=== PATIENT | male | born 1970 | race American Indian/Alaskan Native ===

== ENCOUNTER 2017-09-15 07:01 | Inpatient (IN) | payer MEDICARE ==
[2017-09-15] MEDS ORDERED: PERCOCET 5/325 PO ONE (08:56)
[2017-09-15 09:25] LABS: Basophils # (Auto) 0.1 K/mm3 (0.0-0.1); Basophils % (Auto) 1.5 % (0.0-1.8); Eosinophils # (Auto) 0.9 K/mm3 (0.0-0.4); Eosinophils % (Auto) 10.1 % (0.0-4.3); Hemoglobin 6.1 gm/dl (11.8-15.2); Lymphocytes # (Auto) 1.2 K/mm3 (1.2-5.4); Lymphocytes % (Auto) 13.9 % (13.4-35.0); Mean Corpuscular HGB Conc 33 % (32-34); Mean Corpuscular Hemoglobin 27 pg (28-32); Mean Corpuscular Volume 82 fl (84-94); Monocytes # (Auto) 0.7 K/mm3 (0.0-0.8); Monocytes % (Auto) 7.5 % (0.0-7.3); Platelet Count 245 K/mm3 (140-440); Red Blood Count 2.25 M/mm3 (3.65-5.03); Red Cell Distribution Width 18.4 % (13.2-15.2)
[2017-09-15 09:27] LABS: Hematocrit 18.4 % (35.5-45.6)
[2017-09-15 09:36] LABS: INR 0.99 (0.87-1.13)
[2017-09-15 09:37] LABS: Partial Thromboplastin Time 34.9 Sec. (24.2-36.6)
[2017-09-15 09:44] LABS: Albumin 3.5 g/dL (3.9-5); Calcium 7.4 mg/dL (8.4-10.2)
[2017-09-15] MEDS ORDERED: NACL 0.9% 500 ML 500 ML IV ONE ×2 (09:58→14:09)
--- NOTE | 2017-09-15 11:04 | Emergency Department Report ---
ED General Adult HPI - General Chief complaint: Recheck/Abnormal Lab/Rx Stated complaint: LOW HEMOGLOBIN COUNT Time Seen by Provider: 09/15/17 08:14 Source: EMS Mode of arrival: Stretcher Limitations: No Limitations - History of Present Illness Initial comments: Patient showed up for dialysis today, but they wouldn't do it because his blood level was too low. Patient states that they've been doing dialysis incorrectly for the past couple weeks. He does not receive heparin during his dialysis sessions, which has caused him to lose a lot of blood during dialysis. Patient says he felt really fatigued and weak lately. Not on blood thinners. Denies seeing any red or black in his stool. Last dialysis was on 09/10/2017. Severity scale (0 -10): 8 - Related Data Allergies Allergy/AdvReac Type Severity Reaction Status Date / Time No Known Allergies Allergy Verified 09/15/17 08:21 ED Review of Systems ROS: Stated complaint: LOW HEMOGLOBIN COUNT Other details as noted in HPI Constitutional: malaise, weakness. denies: chills, fever Eyes: denies: eye pain, eye discharge, vision change ENT: denies: ear pain, throat pain Respiratory: denies: cough, shortness of breath, wheezing Cardiovascular: denies: chest pain, palpitations Endocrine: no symptoms reported Gastrointestinal: denies: abdominal pain, nausea, diarrhea Genitourinary: denies: urgency, dysuria Musculoskeletal: denies: back pain, joint swelling, arthralgia Skin: denies: rash, lesions Neurological: denies: headache, weakness, paresthesias Psychiatric: denies: anxiety, depression Hematological/Lymphatic: denies: easy bleeding, easy bruising ED Past Medical Hx - Past Medical History Previous Medical History?: Yes Hx Hypertension: Yes Hx HIV: Yes Additional medical history: ESRD - Social History Smoking Status: Never Smoker Substance Use Type: Alcohol ED Physical Exam - General Limitations: No Limitations General appearance: alert, in no apparent distress - Head Head exam: Present: atraumatic, normocephalic - Eye Eye exam: Present: normal appearance - ENT ENT exam: Present: mucous membranes moist - Neck Neck exam: Present: normal inspection - Respiratory Respiratory exam: Present: normal lung sounds bilaterally. Absent: respiratory distress - Cardiovascular Cardiovascular Exam: Present: regular rate, normal rhythm. Absent: systolic murmur, diastolic murmur, rubs, gallop - GI/Abdominal GI/Abdominal exam: Present: soft. Absent: tenderness, normal bowel sounds - Rectal Rectal exam: Present: deferred, heme (-) stool - Extremities Exam Extremities exam: Present: normal inspection - Back Exam Back exam: Present: normal inspection - Neurological Exam Neurological exam: Present: alert, oriented X3 - Psychiatric Psychiatric exam: Present: normal affect, normal mood - Skin Skin exam: Present: warm, dry, intact, normal color. Absent: rash ED Course Vital Signs 09/15/17 09/15/17 09/15/17 07:55 08:04 08:15 Temperature 98.1 F Pulse Rate 67 68 70 Respiratory 14 17 16 Rate Blood Pressure 167/86 170/85 Blood Pressure 167/86 [Right] O2 Sat by Pulse 100 100 Oximetry 09/15/17 09/15/17 08:26 09:49 Temperature Pulse Rate Respiratory 14 14 Rate Blood Pressure Blood Pressure [Right] O2 Sat by Pulse 100 Oximetry ED Medical Decision Making - Lab Data Result diagrams: 09/15/17 09:03 09/15/17 09:03 - Medical Decision Making 6-year-old male with past history of hypertension, ESRD with dialysis Thursday/ /Thursday that presents to the ER with anemia. Vitals stable. Patient will hand. Hemoglobin is 6.1 day. It appears that his baseline is 8. Patient says that he is losing blood at dialysis. Guaiac was negative. Patient will be transfused a unit of blood. Of note, BMP shows signs that the patient needs dialysis. Creatinine 17. Potassium 6.1. He will be given albuterol/insulin for treatment of his hyperkalemia. I have called nephrology to set him up for dialysis today. An EKG has been ordered to exclude cardiac abnormalities due to hyperkalemia. Critical Care Time: Yes Critical care time in (mins) excluding proc time.: 32 Critical care attestation.: If time is entered above; I have spent that time in minutes in the direct care of this critically ill patient, excluding procedure time. ED Disposition Clinical Impression: Hyperkalemia, Anemia Disposition: OP ADMIT IP TO THIS HOSP Is pt being admited?: Yes Does the pt Need Aspirin: No Condition: Stable Referrals: PRIMARY CARE, [Primary Care Provider] - 3-5 Days
[2017-09-15] MEDS ORDERED: ALBURX 25% (ALBUMIN) IV PRN (12:21)
[2017-09-15] MEDS ORDERED: NACL 0.9% 100 ML IV PRN (12:21)
--- NOTE | 2017-09-15 12:35 | Consultation ---
History of Present Illness - Reason for Consult Consult date: 09/15/17 end stage renal disease, hyperkalemia Requesting physician: GAIL [place] - History of Present Illness Patient showed up for dialysis today, but they wouldn't do it because his blood level was too low. Patient states that they've been doing dialysis incorrectly for the past couple weeks. He does not receive heparin during his dialysis sessions. So, he has been losing a lot of blood during dialysis. Patient says he felt really fatigued and weak lately. Not on blood thinners. Denies seeing any red or black in his stool. Last dialysis was on 09/10/2017. ROS: Stated complaint: LOW HEMOGLOBIN COUNT Other details as noted in HPI Constitutional: malaise, weakness. denies: chills, fever Eyes: denies: eye pain, eye discharge, vision change ENT: denies: ear pain, throat pain Respiratory: denies: cough, shortness of breath, wheezing Cardiovascular: denies: chest pain, palpitations Endocrine: no symptoms reported Gastrointestinal: denies: abdominal pain, nausea, diarrhea Genitourinary: denies: urgency, dysuria Musculoskeletal: denies: back pain, joint swelling, arthralgia Skin: denies: rash, lesions Neurological: denies: headache, weakness, paresthesias Psychiatric: denies: anxiety, depression Hematological/Lymphatic: denies: easy bleeding, easy bruising - Past Medical History Previous Medical History?: Yes Hx Hypertension: Yes Hx HIV: Yes Additional medical history: ESRD -Surgical History dialysis access placement - Social History Smoking Status: Never Smoker Substance Use Type: Alcohol Medications and Allergies Allergies Allergy/AdvReac Type Severity Reaction Status Date / Time No Known Allergies Allergy Verified 09/15/17 08:21 Active Meds: Active Medications Albumin Human (Alburx 25% (Albumin)) 25 gm IV GARCIA PRN PRN Reason: Hypotension Epoetin Erwin (Epogen) 20,000 unit IV GARCIA PRN PRN Reason: hemodialysis Sodium Chloride (Nacl 0.9%) 100 mls @ 999 mls/hr IV GARCIA PRN PRN Reason: Hypotension Exam - Vital Signs Vital signs: Vital Signs Temp Pulse Resp BP Pulse Ox 98.1 F 67 14 167/86 100 09/15/17 07:55 09/15/17 07:55 09/15/17 07:55 09/15/17 07:55 09/15/17 07:55 - Physical Exam Narrative exam: - General Limitations: No Limitations General appearance: alert, in no apparent distress - Head Head exam: Present: atraumatic, normocephalic - Eye Eye exam: Present: normal appearance - ENT ENT exam: Present: mucous membranes moist - Neck Neck exam: Present: normal inspection - Respiratory Respiratory exam: Present: normal lung sounds bilaterally. Absent: respiratory distress - Cardiovascular Cardiovascular Exam: Present: regular rate, normal rhythm. Absent: systolic murmur, diastolic murmur, rubs, gallop - GI/Abdominal GI/Abdominal exam: Present: soft. Absent: tenderness, normal bowel sounds - Rectal Rectal exam: Present: deferred, heme (-) stool - Extremities Exam Extremities exam: Present: normal inspection - Back Exam Back exam: Present: normal inspection - Neurological Exam Neurological exam: Present: alert, oriented X3 - Psychiatric Psychiatric exam: Present: normal affect, normal mood - Skin Skin exam: Present: warm, dry, intact, normal color. Absent: rash Results - Lab Results 09/15/17 09:03 09/15/17 09:03 Most recent lab results Calcium 7.4 mg/dL (8.4-10.2) L 09/15/17 09:03 Assessment and Plan Impression: * ESRD * Hyperkalemia * HTN * Anemia in ESRD Plan: * HD stat and prn * uf as tolerated * strict i/os * Renal Diet * daily lytes/cbc
[2017-09-15] MEDS ORDERED: NACL 0.9 (PRIMING MACHINE ONLY DIALYSIS) MC ONE (15:41)
[2017-09-15] MEDS ORDERED: MORPHINE IV ONE (16:16)
[2017-09-15] MEDS ORDERED: DILAUDID ONE (19:52)
[2017-09-15] MEDS: DILAUDID IV PRN (19:57)
[2017-09-15] MEDS ORDERED: PROAIR IH PRN (21:01)
[2017-09-15] MEDS ORDERED: AMBIEN PO PRN (21:02)
[2017-09-15] MEDS ORDERED: SODIUM CHLORIDE FLUSH SYRINGE 10 ML IV PRN (21:02)
[2017-09-15] MEDS ORDERED: MOTRIN PO PRN (21:02)
[2017-09-15] MEDS ORDERED: ZOFRAN IV PRN (21:02)
[2017-09-15] MEDS ORDERED: TYLENOL PO PRN (21:02)
[2017-09-15] MEDS ORDERED: APRESOLINE IV PRN (21:05)
[2017-09-15] MEDS ORDERED: PROVENTIL IH PRN (21:14)
[2017-09-15] MEDS ORDERED: NON-FORMULARY (Clonidine Hcl [Catapres] 0.3 MG) PO SCH (22:00)
[2017-09-15] MEDS: PEPCID PO SCH (23:00)
[2017-09-15] MEDS: LONITEN PO SCH (23:00)
[2017-09-15] MEDS: SODIUM CHLORIDE FLUSH SYRINGE 10 ML IV SCH (23:00)
[2017-09-15] MEDS: COREG PO SCH (23:00)
[2017-09-15] MEDS: CATAPRES PO SCH (23:00)
[2017-09-15] MEDS: PERCOCET 5/325 PO PRN (23:38)
--- NOTE | 2017-09-16 01:56 | Event Note ---
Date: 09/15/17 See dictated H/P in reports
--- NOTE | 2017-09-16 02:12 | History and Physical Report ---
CHIEF COMPLAINT: Low hemoglobin and hematocrit. HISTORY OF PRESENT ILLNESS: The patient is a 46-year-old -[place] male with end-stage renal disease, showed up for dialysis and was told that his hemoglobin was low, was sent to the Emergency Room for blood transfusion and continued dialysis. The patient says his dialysis was not being done currently. There is shortness of breath on minimal exertion present. Easily fatigable. Otherwise, no chest pain, no palpitations. No fever, no chills. PAST MEDICAL HISTORY: Significant for hypertension, HIV, end-stage renal disease. SOCIAL HISTORY: He does not smoke. Alcohol occasionally. PAST SURGICAL HISTORY: AV graft. FAMILY HISTORY: Hypertension. REVIEW OF SYSTEMS: Significant for feeling weak and easy fatigability and shortness of breath. Otherwise, 14-point review of systems negative. CURRENT MEDICATIONS: On the chart. PHYSICAL EXAMINATION: GENERAL: Middle-aged male, cooperative during examination. VITAL SIGNS: Blood pressure is 192/99, temperature is 98.4, pulse is 91, respirations are 16. HEENT: Unremarkable. Pupils equal and reactive. NECK: Supple, no lymphadenopathy, no thyromegaly. LUNGS: Clear to auscultation and percussion. Good air entry. CARDIOVASCULAR: S1, S2 heard. No gallop, no murmur, no rub. Apical impulse in the left fifth intercostal space and midclavicular line. ABDOMEN: Soft and benign. No hepatosplenomegaly. No guarding, no rigidity. Hernial orifices are normal. EXTREMITIES: Good pedal pulses. No pedal edema. CENTRAL NERVOUS SYSTEM: Alert and oriented x 4, nonfocal exam. SKIN: Normal. LABORATORY DATA: Significant for H and H of 6.1 and 18.4, potassium of 6.2, BUN and creatinine of 69 and 17.2. ASSESSMENT AND PLAN: 1. Acute anemia secondary to end-stage renal disease and transfuse 2 units of blood. 2. Hyperkalemia. The patient given calcium. Also taken for emergent dialysis. 3. Hypertension. Continue Coreg and minoxidil. 4. Hyperlipidemia. Continue atorvastatin. 5. Asthma/chronic obstructive pulmonary disease. Continue insulin. 6. Deep venous thrombosis prophylaxis, heparin 5000 every 12. 7. End-stage renal disease. Continue dialysis. JOB# [id number] VSM/NTS
[2017-09-16] MEDS: DILAUDID IV PRN ×4 (02:54→20:32)
[2017-09-16 08:25] LABS: Basophils # (Auto) 0.1 K/mm3 (0.0-0.1); Basophils % (Auto) 0.8 % (0.0-1.8); Eosinophils # (Auto) 0.6 K/mm3 (0.0-0.4); Eosinophils % (Auto) 4.3 % (0.0-4.3); Hematocrit 28.6 % (35.5-45.6); Lymphocytes # (Auto) 1.5 K/mm3 (1.2-5.4); Lymphocytes % (Auto) 10.9 % (13.4-35.0); Mean Corpuscular HGB Conc 35 % (32-34); Mean Corpuscular Hemoglobin 29 pg (28-32); Mean Corpuscular Volume 82 fl (84-94); Monocytes # (Auto) 1.3 K/mm3 (0.0-0.8); Monocytes % (Auto) 9.3 % (0.0-7.3); Red Blood Count 3.48 M/mm3 (3.65-5.03); Red Cell Distribution Width 18.7 % (13.2-15.2)
[2017-09-16 08:28] LABS: Platelet Count 245 K/mm3 (140-440)
[2017-09-16 08:35] LABS: Albumin 3.6 g/dL (3.9-5); Calcium 8.5 mg/dL (8.4-10.2)
--- NOTE | 2017-09-16 10:26 | Progress Note ---
Subjective Interval history: Patient was seen today for follow-up, on many renal related issues Patient currently denies having any symptoms of chest pain pressure shortness of breath did receive hemodialysis treatment he is not happy about the clinic where he is being dialyzed, patient stated that he was not getting heparin and has had issues with dialyzer clotting resulting in blood loss in the early days when he moved to [facility] prior to which she was dialyzing [facility] He does have a chronically tortuous access for which she was seeing his vascular surgeon Dr. Richards and he would like to follow up with him Interdisciplinary notes were reviewed Vitals labs intake and output medications were reviewed from today Allergies: Reviewed Social history: Reviewed Family history: Reviewed Physical examination HEENT: Oral mucosa moist no pharyngeal erythema, moderate pallor present Neck: Supple no JVD Chest: Clear to auscultation no crackles rales or wheezes Heart: Regular rate and rhythm S1-S2 heard no S3-S4 Abdomen: Soft nontender no renal bruit no CVA tenderness no suprapubic fullness Extremity: Mild edema dry skin no peripheral cyanosis pulses palpable Chronically tortuous fistula Neurological: Alert awake Musculoskeletal: No joint effusion noted Assessment and plan End-stage renal disease: Patient is currently on maintenance hemodialysis, will continue to dialyze as tolerated, he has received his hemodialysis treatment Anemia and end-stage renal disease: Goal hemoglobin 10 monitor hemoglobin and hematocrit and just erythropoietin as needed, check other labs periodically patient will require further workup of anemia possibly will need to see gastroenterology as well as hematology,this can be arranged an outpatient setting as well, have had a long discussion with patient, he believes that the blood was lost due to dialyzer clotting we will need to monitor and if it still continues to have down trend he will need to see these services I have discussed with the dialysis facility already patient is currently on heparin at the facility, I have told him that if he has any issues he can reach out to us have given him my business card to contact me hyperkalemia: Appears to have improved Bone mineral and Secondary hyperparathyroidism: Check phosphorus and PTH level goal phosphorus under 5, PTH under 600, for dialysis patients Malnutrition risk: High patient needs to be on high protein diet preferably 1.5 g protein per KG body weight and may benefit from nutritional evaluation Dialysis access: , Appears to be working well patient does not have any complaints Labs were discussed with patient explained and simple Slovak does have good understanding off renal related issues, Will continue to follow and make recommendation from renal standpoint Objective - Vital Signs Vital signs: Vital Signs - 12hr 09/15/17 09/16/17 09/16/17 23:00 01:30 04:17 Temperature 98.5 F Pulse Rate 92 H 82 92 H Respiratory 16 18 Rate Blood Pressure 192/99 140/92 Blood Pressure 129/77 [Left] O2 Sat by Pulse 97 100 Oximetry 09/16/17 07:53 Temperature 98.0 F Pulse Rate 86 Respiratory 18 Rate Blood Pressure 177/76 Blood Pressure [Left] O2 Sat by Pulse 100 Oximetry - Lab 09/17/17 10:19 09/17/17 10:19 Most recent lab results Calcium 8.5 mg/dL (8.4-10.2) 09/16/17 07:37
[2017-09-16] MEDS: PEPCID PO SCH ×2 (11:14→23:13)
[2017-09-16] MEDS: LONITEN PO SCH ×2 (11:14→23:13)
[2017-09-16] MEDS: COREG PO SCH ×2 (11:14→23:17)
[2017-09-16] MEDS: CATAPRES PO SCH ×2 (11:15→23:16)
--- NOTE | 2017-09-16 19:34 | Progress Note ---
Assessment and Plan Assessment and plan: Patient is a 46 year old male with hx of ESRD on HD admitted with anemia and no noted GI losses Anemia of chronic disease . Eval for acute losses- ?Per pt likely due to discarded blood clotting in dialysis system ESRD HTN HYPERLIPIDEMIA COPD Plan s/p transfusion, monitor H/H. Check iron Indices Nebs Nephrology input noted Electrolytes as replace History Interval history: Pateint seen and examined today, reports improvement in generalized weakness, denies any melanotic stool or BRBPR. Hospitalist Physical - Constitutional Vitals: Temp Pulse Resp BP Pulse Ox 98.4 F 93 H 18 133/79 98 09/16/17 16:26 09/16/17 16:26 09/16/17 16:26 09/16/17 16:26 09/16/17 16:26 General appearance: Present: no acute distress, cachectic - EENT Eyes: Present: PERRL, EOM intact - Neck Neck: Present: supple, normal ROM - Respiratory Respiratory effort: normal Respiratory: bilateral: CTA - Cardiovascular Rhythm: regular Heart Sounds: Present: S1 & S2. Absent: systolic murmur, diastolic murmur - Extremities Extremities: no ischemia, pulses intact, pulses symmetrical, normal temperature , abnormal (left upper ext AV FISTULA with thrills) Peripheral Pulses: within normal limits - Abdominal General gastrointestinal: soft, non-tender, non-distended - Integumentary Integumentary: Present: clear, warm - Psychiatric Psychiatric: appropriate mood/affect, intact judgment & insight - Neurologic Neurologic: CNII-XII intact - Allied Health Allied health notes reviewed: nursing Results - Labs CBC & Chem 7: 09/16/17 07:37 09/16/17 07:37 Labs: Laboratory Last Values WBC 13.5 K/mm3 (4.5-11.0) H 09/16/17 07:37 RBC 3.48 M/mm3 (3.65-5.03) L 09/16/17 07:37 Hgb 10.0 gm/dl (11.8-15.2) L D 09/16/17 07:37 Hct 28.6 % (35.5-45.6) L D 09/16/17 07:37 MCV 82 fl (84-94) L 09/16/17 07:37 MCH 29 pg (28-32) 09/16/17 07:37 MCHC 35 % (32-34) H 09/16/17 07:37 RDW 18.7 % (13.2-15.2) H 09/16/17 07:37 Plt Count 245 K/mm3 (140-440) 09/16/17 07:37 Lymph % (Auto) 10.9 % (13.4-35.0) L 09/16/17 07:37 [place] % (Auto) 9.3 % (0.0-7.3) H 09/16/17 07:37 Eos % (Auto) 4.3 % (0.0-4.3) 09/16/17 07:37 Baso % (Auto) 0.8 % (0.0-1.8) 09/16/17 07:37 Lymph # 1.5 K/mm3 (1.2-5.4) 09/16/17 07:37 [place] # 1.3 K/mm3 (0.0-0.8) H 09/16/17 07:37 Eos # 0.6 K/mm3 (0.0-0.4) H 09/16/17 07:37 Baso # 0.1 K/mm3 (0.0-0.1) 09/16/17 07:37 Seg Neutrophils % 74.7 % (40.0-70.0) H 09/16/17 07:37 Seg Neutrophils # 10.1 K/mm3 (1.8-7.7) H 09/16/17 07:37 PT 13.6 Sec. (12.2-14.9) 09/15/17 09:03 INR 0.99 (0.87-1.13) 09/15/17 09:03 APTT 34.9 Sec. (24.2-36.6) 09/15/17 09:03 Sodium 136 mmol/L (137-145) L 09/16/17 07:37 Potassium 4.9 mmol/L (3.6-5.0) D 09/16/17 07:37 Chloride 93.6 mmol/L (98-107) L 09/16/17 07:37 Carbon Dioxide 26 mmol/L (22-30) 09/16/17 07:37 Anion Gap 21 mmol/L 09/16/17 07:37 BUN 37 mg/dL (9-20) H 09/16/17 07:37 Creatinine 10.4 mg/dL (0.8-1.5) H 09/16/17 07:37 Estimated GFR 6 ml/min 09/16/17 07:37 BUN/Creatinine Ratio 4 % 09/16/17 07:37 Glucose 91 mg/dL (75-100) 09/16/17 07:37 Hemoglobin A1c 5.8 % (4-6) 09/15/17 21:26 Calcium 8.5 mg/dL (8.4-10.2) 09/16/17 07:37 Total Bilirubin 1.30 mg/dL (0.1-1.2) H 09/16/17 07:37 AST 35 units/L (5-40) 09/16/17 07:37 ALT 10 units/L (7-56) 09/16/17 07:37 Alkaline Phosphatase 80 units/L (35-129) 09/16/17 07:37 Total Protein 8.4 g/dL (6.3-8.2) H 09/16/17 07:37 Albumin 3.6 g/dL (3.9-5) L 09/16/17 07:37 Albumin/Globulin Ratio 0.8 % 09/16/17 07:37 Blood Type B POSITIVE 09/15/17 09:03 Antibody Screen Negative 09/15/17 09:03 Crossmatch See Detail 09/15/17 09:03
[2017-09-16] MEDS: SODIUM CHLORIDE FLUSH SYRINGE 10 ML IV SCH ×2 (23:21→23:44)
[2017-09-17] MEDS: PERCOCET 5/325 PO PRN ×2 (02:06→16:58)
[2017-09-17 07:52] LABS: Hematocrit 26.6 % (35.5-45.6); Hemoglobin 9.2 gm/dl (11.8-15.2); Mean Corpuscular HGB Conc 35 % (32-34); Mean Corpuscular Hemoglobin 29 pg (28-32); Mean Corpuscular Volume 83 fl (84-94); Red Cell Distribution Width 18.3 % (13.2-15.2)
[2017-09-17 07:55] LABS: Platelet Count 199 K/mm3 (140-440)
[2017-09-17] MEDS: DILAUDID IV PRN ×2 (07:58→13:10)
--- NOTE | 2017-09-17 09:53 | Progress Note ---
Subjective Interval history: Patient was seen today for follow-up, on many renal related issues he has recently both to dialysis clinic of this outside of the town He does not have any history suggestive of GI loss Stated that he has had a GI workup done approximately a year ago including endoscopy and colonoscopy He does not remember seeing a security consultant recently, he has not seen a lvn recently Patient stated that he was losing blood because he was not getting heparin on dialysis and dialyzer was clotting in the early stages but has been getting heparin at the clinic in the past few weeks Interdisciplinary notes were reviewed Vitals labs intake and output medications were reviewed from today Allergies: Reviewed Social history: Reviewed Family history: Reviewed Physical examination HEENT: Oral mucosa moist no pharyngeal erythema, moderate pallor present Neck: Supple no JVD Chest: Clear to auscultation no crackles rales or wheezes Heart: Regular rate and rhythm S1-S2 heard no S3-S4 Abdomen: Soft nontender no renal bruit no CVA tenderness no suprapubic fullness Extremity: Mild edema dry skin no peripheral cyanosis pulses palpable 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 Neurological: Alert awake Musculoskeletal: No joint effusion noted Assessment and plan End-stage renal disease: continue with hemodialysis 3 times a week on Thursday schedule Anemia and end-stage renal disease: Advised him to follow-up at the dialysis clinic and also discussed with primary care physician, if hemoglobin continues to down trend he will need to go for repeat GI workup as well as a hematology evaluation have had a long discussion with him about these issues Status post packed red blood cell transfusion patient is feeling much better he denies having any blood loss Will need to check with outpatient dialysis clinic facility, about patient's labs, he does not seem to be happy at the facility hyperkalemia: Appears to have improved Bone mineral and Secondary hyperparathyroidism: Check phosphorus and PTH level goal phosphorus under 5, PTH under 600, for dialysis patients Malnutrition risk: High patient needs to be on high protein diet preferably 1.5 g protein per KG body weight and may benefit from nutritional evaluation Dialysis access: , Appears to be working well patient does not have any complaints, his access appeared to be tortuous but he prefers to follow up with Dr. Richards in [place] who is his regular vascular Dr. need to make a follow-up appointment in our office,overall he is stable for discharge from renal standpoint I have adequately counseled and educated him about renal replacement therapy, diet lifestyle changes need to comply with treatment recommendations and he agrees to do so Labs were discussed with patient explained and simple Icelandic does have good understanding off renal related issues, Will continue to follow and make recommendation from renal standpoint Objective - Vital Signs Vital signs: Vital Signs - 12hr 09/16/17 09/16/17 09/16/17 22:00 23:16 23:17 Temperature Pulse Rate 90 90 Respiratory 18 Rate Blood Pressure 130/78 130/78 O2 Sat by Pulse 98 Oximetry 09/17/17 09/17/17 00:00 07:38 Temperature 98.0 F 98.4 F Pulse Rate 84 80 Respiratory 18 20 Rate Blood Pressure 131/72 128/73 O2 Sat by Pulse 99 98 Oximetry - Lab 09/17/17 10:19 09/17/17 10:19 Most recent lab results Calcium 8.5 mg/dL (8.4-10.2) 09/16/17 07:37
[2017-09-17 11:27] LABS: Hemoglobin 10.3 gm/dl (11.8-15.2); Mean Corpuscular HGB Conc 34 % (32-34); Mean Corpuscular Hemoglobin 28 pg (28-32); Mean Corpuscular Volume 83 fl (84-94); Red Blood Count 3.62 M/mm3 (3.65-5.03); Red Cell Distribution Width 18.6 % (13.2-15.2)
[2017-09-17 11:32] LABS: Platelet Count 227 K/mm3 (140-440)
--- NOTE | 2017-09-17 12:04 | Discharge Summary ---
Providers - Providers Date of Admission: 09/15/17 12:13 Attending physician: RIVKA BALL MD 09/15/17 21:02 Consult to Physician [CONS] Routine Comment: Consulting Provider: KAI GARCIA Physician Instructions: Reason For Exam: ESRD Primary care physician: JUAN MANUEL JACOBSEN MD Hospitalization Reason for admission: ANEMIA Condition: Stable Hospital course: Patient is a 46 year old male with hx of ESRD on HD admitted with anemia and no noted GI losses. patient apparently stated that he was experiencing multiple clots during dialysis and feels that his blood loss wa as a result of not getting heparin on dialysis and dialyzer was clotting in the early stages but has been getting heparin at the clinic in the past few weeks. He also stated that he has had a GI workup done approximately a year ago including endoscopy and colonoscopy. He does not remember seeing a skilled nursing case manager recently, he has not seen a pollution control engineer recently and this was recommended. Nephrology followed the patiente during stay and made recommendations which were communicated to the patient. Acute blood loss Anemia on chronic anemia secondary to ESRD . ESRD HTN Hyperklaemia HYPERLIPIDEMIA COPD Disposition: TO HOME OR SELFCARE Time spent for discharge: 35 mins Core Measure Documentation - Palliative Care Palliative Care/ Comfort Measures: Not Applicable - Core Measures Any of the following diagnoses?: none - VTE Discharge Requirements Deep Vein Thrombosis/Pulmonary Embolism Present on Admission: No Exam - Physical Exam Narrative exam: General:stable in no acute distress HEENT: Oral mucosa moist no pharyngeal erythema, moderate pallor present Neck: Supple no JVD Chest: Clear to auscultation no crackles rales or wheezes Heart: Regular rate and rhythm S1-S2 heard no S3-S4 Abdomen: Soft nontender no renal bruit no CVA tenderness no suprapubic fullness Extremity: Mild edema dry skin no peripheral cyanosis pulses palpable 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 Neurological: Alert awake Musculoskeletal: No joint effusion noted - Constitutional Vitals: Temp Pulse Resp BP Pulse Ox 98.4 F 80 20 128/73 98 09/17/17 07:38 09/17/17 07:38 09/17/17 07:38 09/17/17 07:38 09/17/17 07:38 Plan Activity: advance as tolerated, fall precautions Diet: renal Special Instructions: record daily BP diary Additional Instructions: continue with dialysis Follow up with: PRIMARY MD DELMAR [Primary Care Provider] - 3-5 Days KAYA MABRY MD [Staff Physician] - 7 Days Prescriptions: oxyCODONE /ACETAMINOPHEN [Percocet 5/325 mg] 1 tab PO Q6H PRN #14 tablet PRN Reason: Pain, Moderate (4-6)
[2017-09-17 12:39] LABS: Anisocytosis 1+; Band Neutrophils # (Manual) 0.1 K/mm3; Basophils % (Manual) 0 % (0.0-1.8); Hypochromasia 1+; Target Cells 1+; Total Cells Counted 100
[2017-09-17 12:40] LABS: Platelet Estimate Consistent w Auto; Schistocytes Rare
[2017-09-17] MEDS ORDERED: NACL 0.9 (PRIMING MACHINE ONLY DIALYSIS) MC ONE (13:05)
[2017-09-17 16:59] VITALS: BP 181/91
[2017-09-17] MEDS: COREG PO SCH (16:59)
[2017-09-17] MEDS: CATAPRES PO SCH (17:00)
[2017-09-17] MEDS: LONITEN PO SCH (17:00)
[2017-09-17] MEDS: PEPCID PO SCH (17:00)
== END 2017-09-17 18:40 | disposition home or self-care (01) | DRG 682 ==
LOC: ED 07:01 → 4A 12:13 → 3A 09-16 18:51
PROVIDERS: ADMIT Internal Medicine; ATTEND Internal Medicine
PROC: 30233N1 Transfusion of Nonautologous Red Blood Cells into Peripheral Vein, Percutaneous Approach (ICD-10-PCS; principal; 2017-09-15)
PROC: 5A1D70Z Performance of Urinary Filtration, Intermittent, Less than 6 Hours Per Day (ICD-10-PCS; 2017-09-15)
PROC: 5A1D70Z Performance of Urinary Filtration, Intermittent, Less than 6 Hours Per Day (ICD-10-PCS; 2017-09-17)
DX: I12.0 Hypertensive chronic kidney disease with stage 5 chronic kidney disease or end stage renal disease (principal); N18.6 End stage renal disease; E87.5 Hyperkalemia; D63.1 Anemia in chronic kidney disease; Z99.2 Dependence on renal dialysis; J44.9 Chronic obstructive pulmonary disease, unspecified; Z72.89 Other problems related to lifestyle; J45.909 Unspecified asthma, uncomplicated; E78.5 Hyperlipidemia, unspecified
CPT/HCPCS: 36415; 36430; 80048; 80053; 83036; 85007; 85025; 85027; 85610; 85730; 86850; 86900; 86901; 86920; 93005; 93010; 94640; 99291; 99406; A9270-GY; J0360; J0885; J1170; J2270; J7030; J7040; P9016

== ENCOUNTER 2017-10-27 10:31 | Emergency (ER) | payer MEDICARE ==
[2017-10-27 14:10] VITALS: BP 157/83
[2017-10-27] MEDS ORDERED: PERCOCET 5/325 PO ONE (15:26)
--- NOTE | 2017-10-27 15:32 | Emergency Department Report ---
Blank Doc - Documentation Documentation: 46-year-old male with a past medical history of end-stage renal disease on dialysis and HIV presents to Hospital pain to left hip pain since waking up yesterday. That hip pain is 10/10 intensity, constant, and radiates down to the knee. Worse movement and palpation. No alleviating factors reported. Patient denies recent fall, fever, trauma, injury, and states last time he had hip pain was over 10 years ago. Patient went to dialysis as scheduled and continues to have significant pain and is unable to ambulate at this time. Patient is HIV positive last blood testing regarding levels was about 6 months ago he was told that his numbers were "good". Patient has been noncompliant with his HIV medication to last 2 months since he relocated to this part of town. He states he needs to find infectious disease doctors and other specialists. On exam patient has left buttock, and left hip pain that is worse with movement and palpation. He has a 2+ radial and DP pulse. No calf tenderness or edema noted. Percocet 2 tablets 5 mg orally for pain Labs ordered CBC, BMP, ESR Left hip x-ray ordered. Midlevel to follow
[2017-10-27 16:05] LABS: Hematocrit 32.5 % (35.5-45.6); Mean Corpuscular HGB Conc 34 % (32-34); Mean Corpuscular Hemoglobin 28 pg (28-32); Mean Corpuscular Volume 82 fl (84-94); Platelet Count 227 K/mm3 (140-440); Red Blood Count 3.96 M/mm3 (3.65-5.03); Red Cell Distribution Width 16.5 % (13.2-15.2)
[2017-10-27 16:18] LABS: Calcium 9.3 mg/dL (8.4-10.2)
[2017-10-27 16:27] LABS: Erythrocyte Sedimentation Rate 1 mm/Hr (0-20)
--- NOTE | 2017-10-27 16:29 | XRay Report ---
FINAL REPORT EXAM: XR HIP 2-3V LT HISTORY: left hip pain TECHNIQUE: AP view of the pelvis and a single coned-down view of the left hip. PRIORS: None. FINDINGS: No evidence for acute fracture or dislocation is seen. Joint spaces are maintained. The soft tissues are unremarkable. Bony mineralization is normal. IMPRESSION: No acute soft tissue or bony abnormality noted in the left hip.
[2017-10-27 16:37] LABS: Basophils % (Manual) 0 % (0.0-1.8); Myelocytes # (Manual) 0.1 K/mm3; Total Cells Counted 100
[2017-10-27 16:38] LABS: Anisocytosis 1+; Large Platelets Few; Platelet Estimate Consistent w Auto; Target Cells 2+
[2017-10-27 16:39] LABS: Poikilocytosis 1+
--- NOTE | 2017-10-27 16:53 | Emergency Department Report ---
ED Extremity Problem HPI - General Chief complaint: Extremity Injury, Lower Stated complaint: LEFT SIDE HURTS TO WALK Time Seen by Provider: 10/27/17 14:53 Source: patient, family Mode of arrival: Wheelchair Limitations: No Limitations - History of Present Illness Initial comments: 46-year-old male with a past medical history of end-stage renal disease on dialysis and HIV presents to Hospital pain to left hip pain since waking up yesterday. That hip pain is 10/10 intensity, constant, and radiates down to the knee. Worse movement and palpation. No alleviating factors reported. Patient denies recent fall, fever, trauma, injury, and states last time he had hip pain was over 10 years ago. Patient went to dialysis as scheduled and continues to have significant pain and is unable to ambulate at this time. Patient is HIV positive last blood testing regarding levels was about 6 months ago he was told that his numbers were "good". Patient has been noncompliant with his HIV medication to last 2 months since he relocated to this part of town. He states he needs to find infectious disease doctors and other specialists. MD Complaint: extremity pain Onset/Timin -: days(s) Location: left, other (hip) History of Same: Yes -: Yes arthralgia, No fever, No associated dyspnea, No associated chest pain Radiation: none Severity scale (0 -10): 7 Quality: aching Consistency: constant Improves with: nothing Worsens with: weight bearing, walking Associated Symptoms: arthralgias. denies: chest pain, shortness of breath, fever, myalgias, rash - Related Data Home Medications Medication Instructions Recorded Confirmed Last Taken Albuterol Sulfate [Ventolin HFA] 1 puff PO Q4H PRN 09/15/17 09/15/17 Unknown Atorvastatin Calcium [Lipitor] 40 mg PO QHS 09/15/17 09/15/17 09/14/17 Carvedilol [Coreg] 6.25 mg PO BID 09/15/17 09/15/17 09/14/17 Clonidine HCl [Catapres] 0.3 mg PO BID 09/15/17 09/15/17 09/14/17 Minoxidil [Loniten] 2.5 mg PO BID 09/15/17 09/15/17 09/14/17 Previous Rx's Medication Instructions Recorded Last Taken Type oxyCODONE /ACETAMINOPHEN [Percocet 1 tab PO Q6H PRN #14 tablet 09/17/17 Unknown Rx 5/325 mg] traMADol [Ultram 50 MG tab] 50 mg PO Q6HR PRN #12 tablet 10/27/17 Unknown Rx Allergies Allergy/AdvReac Type Severity Reaction Status Date / Time No Known Allergies Allergy Verified 10/27/17 10:47 ED Review of Systems ROS: Stated complaint: LEFT SIDE HURTS TO WALK Other details as noted in HPI Constitutional: denies: chills, fever Respiratory: denies: cough, shortness of breath, SOB with exertion, SOB at rest , stridor, wheezing Cardiovascular: denies: chest pain, palpitations, syncope Gastrointestinal: denies: abdominal pain, nausea, vomiting, diarrhea Genitourinary: denies: urgency, dysuria Musculoskeletal: arthralgia. denies: back pain, joint swelling, myalgia Skin: denies: rash, lesions Neurological: denies: headache, weakness, numbness, paresthesias, vertigo ED Past Medical Hx - Past Medical History Previous Medical History?: Yes Hx Hypertension: Yes Hx Congestive Heart Failure: No Hx Diabetes: No Hx Asthma: No Hx COPD: No Hx HIV: Yes Additional medical history: ESRD - Surgical History Past Surgical History?: Yes - Family History Family history: hypertension - Social History Smoking Status: Never Smoker Substance Use Type: Alcohol - Medications Home Medications: Home Medications Medication Instructions Recorded Confirmed Last Taken Type Albuterol Sulfate [Ventolin HFA] 1 puff PO Q4H PRN 09/15/17 09/15/17 Unknown History Atorvastatin Calcium [Lipitor] 40 mg PO QHS 09/15/17 09/15/17 09/14/17 History Carvedilol [Coreg] 6.25 mg PO BID 09/15/17 09/15/17 09/14/17 History Clonidine HCl [Catapres] 0.3 mg PO BID 09/15/17 09/15/17 09/14/17 History Minoxidil [Loniten] 2.5 mg PO BID 09/15/17 09/15/17 09/14/17 History oxyCODONE /ACETAMINOPHEN [Percocet 1 tab PO Q6H PRN #14 tablet 09/17/17 Unknown Rx 5/325 mg] traMADol [Ultram 50 MG tab] 50 mg PO Q6HR PRN #12 tablet 10/27/17 Unknown Rx ED Physical Exam - General Limitations: No Limitations General appearance: alert, in no apparent distress - Head Head exam: Present: atraumatic, normocephalic - Eye Eye exam: Present: normal appearance, PERRL, EOMI - ENT ENT exam: Present: normal exam, normal orophraynx, mucous membranes moist - Neck Neck exam: Present: normal inspection, full ROM. Absent: tenderness, lymphadenopathy - Respiratory Respiratory exam: Present: normal lung sounds bilaterally. Absent: respiratory distress, chest wall tenderness - Cardiovascular Cardiovascular Exam: Present: regular rate, normal rhythm. Absent: normal heart sounds, systolic murmur, diastolic murmur - GI/Abdominal GI/Abdominal exam: Present: soft, normal bowel sounds. Absent: distended, tenderness, rigid - Extremities Exam Extremities exam: Present: normal inspection, full ROM, normal capillary refill , other (no clubbing, cyanosis or edema. Positive pulses all extremities and no neurovascular compromise. No joint deformity, crepitus or effusion.). Absent: tenderness, pedal edema, joint swelling, calf tenderness - Expanded Lower Extremity Exam Left Hip exam: Present: normal inspection, full ROM, pelvic stability. Absent: tenderness, swelling, abrasion, laceration, ecchymosis, deformity, crepidus, dislocation, erythema, external rotation, internal rotation, shortening Upper Leg exam: Present: normal inspection, full ROM. Absent: tenderness, swelling, abrasion, laceration, ecchymosis, deformity, crepidus, dislocation Knee exam: Present: normal inspection, full ROM, full knee extension. Absent: tenderness, swelling, abrasion, laceration, ecchymosis, deformity, crepidus, dislocation, erythema, effusion, pain w/ pronation/supination, posterior draw sign, pain/laxity with valgus, pain/laxity with varus Lower Leg exam: Present: normal inspection, full ROM. Absent: tenderness, swelling, abrasion, laceration, ecchymosis, deformity, crepidus, dislocation, erythema, palpable cord, Corinna's sign Ankle exam: Present: normal inspection, full ROM. Absent: tenderness, swelling , abrasion, laceration, ecchymosis, deformity, crepidus, dislocation, erythema Foot/Toe exam: Present: normal inspection, full ROM. Absent: tenderness, swelling, abrasion, laceration, ecchymosis, deformity, crepidus, dislocation, erythema, amputation, puncture wound, foreign body, calcaneal tenderness, tenderness at base of 5th metatarsal, nail avulsion, subungual hematoma Neuro vascular tendon exam: Present: no vascular compromise. Absent: pulse deficit, abnormal cap refill, motor deficit, sensory deficit, tendon deficit, extremity cold to touch, pallor, decreased fine/light touch, foot drop, peroneal nerve deficit, significant pain with passive ROM of distal joint Gait: Positive: observed and limited by pain - Back Exam Back exam: Present: normal inspection, full ROM, other (ambulates without any assistance.). Absent: tenderness, CVA tenderness (R), CVA tenderness (L), muscle spasm, paraspinal tenderness, vertebral tenderness, rash noted - Neurological Exam Neurological exam: Present: alert, oriented X3, normal gait, reflexes normal. Absent: motor sensory deficit - Psychiatric Psychiatric exam: Present: normal affect, normal mood - Skin Skin exam: Present: warm, dry, intact, normal color. Absent: rash ED Course Vital Signs 10/27/17 10/27/17 10/27/17 10:47 14:09 14:10 Temperature 97.8 F 98.2 F 98.2 F Pulse Rate 81 76 76 Respiratory 18 22 22 Rate Blood Pressure 152/85 157/83 Blood Pressure 157/83 [Right] O2 Sat by Pulse 100 100 100 Oximetry 10/27/17 15:32 Temperature Pulse Rate Respiratory 18 Rate Blood Pressure Blood Pressure [Right] O2 Sat by Pulse Oximetry - Reevaluation(s) Reevaluation #1: 10/27/17 18:25 Patient received Percocet 5/325 mg 2 tablets by mouth which he voiced relief of his hip pain. ED Medical Decision Making - Lab Data Result diagrams: 10/27/17 15:47 10/27/17 15:47 Vital Signs 10/27/17 10/27/17 10/27/17 10:47 14:09 14:10 Temperature 97.8 F 98.2 F 98.2 F Pulse Rate 81 76 76 Respiratory 18 22 22 Rate Blood Pressure 152/85 157/83 Blood Pressure 157/83 [Right] O2 Sat by Pulse 100 100 100 Oximetry 10/27/17 15:32 Temperature Pulse Rate Respiratory 18 Rate Blood Pressure Blood Pressure [Right] O2 Sat by Pulse Oximetry - Radiology Data Radiology results: report reviewed X-ray of left hip dictated by radiologist and report reviewed by myself. No acute findings. Patient: ANNIE DIAZ MR#: [id number] : 1970 Acct:[id number] Age/Sex: 46 / M ADM Date: 10/27/17 Loc: ED Attending Dr: Ordering Physician: NATHALY EL MD Date of Service: 10/27/17 Procedure(s): XR hip 2-3V LT Accession Number(s): [id number] cc: NATHALY EL MD Fluoro Time In Minutes: FINAL REPORT EXAM: XR HIP 2-3V LT HISTORY: left hip pain TECHNIQUE: AP view of the pelvis and a single coned-down view of the left hip. PRIORS: None. FINDINGS: No evidence for acute fracture or dislocation is seen. Joint spaces are maintained. The soft tissues are unremarkable. Bony mineralization is normal. IMPRESSION: No acute soft tissue or bony abnormality noted in the left hip. Transcribed By: [facility] Dictated By: KASSANDRA LAMBERT MD Electronically Authenticated By: KASSANDRA LAMBERT MD Signed Date/Time: 10/27/171623 DD/ 23 TD/TT: 10/27/171623 - Medical Decision Making This is a 46-year-old male here for left hip pain. He completed dialysis today. He said he has been having left ear pain since yesterday but denies falling or any trauma. He is here to be evaluated. She was seen and examined by myself. He is found to have normal exam to extremities, normal back and neck exam and other exams are normal. Patient with a limp to the left side. No effusion, bony abnormality, crepitus to his joints. No swelling or ecchymotic areas noted. Patient had x-ray of left hip which was dictated by radiologist and report reviewed by myself and no abnormalities noted. This was relayed to patient and he voiced understanding. She was arthralgia left hip and he received Percocet 5/55 2 tablets by mouth and emergency room relief of his pain and will discharge home on Ultram. Discussed with family that he needs to follow-up with Dr. Velásquez his orthopedic doctor for hip pain. He voiced understanding Medications medicated on medication, diagnosis, treatment plan. Discharged home in stable condition for emergency room, vital signs are stable he is a febrile. He said he is feeling much better after pain medication has been given. Discharged home to follow-up with Dr. Oscar in 2-3 days and he voiced understanding I discussed with him if his condition worsens or return to the emergency room. Discharged home a prescription for Ultram. - Differential Diagnosis fracture, dislocation, degenerative joint disease, MSK pain Critical care attestation.: If time is entered above; I have spent that time in minutes in the direct care of this critically ill patient, excluding procedure time. ED Disposition Clinical Impression: Arthralgia of left hip Disposition: DC-01 TO HOME OR SELFCARE Is pt being admited?: No Does the pt Need Aspirin: No Condition: Stable Instructions: Arthralgia (ED) Additional Instructions: Follow up with orthopedic doctor as instructed Do not drive or operate heavy machinery while taking this medication as a cause drowsiness Prescriptions: traMADol [Ultram 50 MG tab] 50 mg PO Q6HR PRN #12 tablet PRN Reason: Pain Referrals: OPHELIA OSCAR MD [Staff Physician] - 2-3 Days Forms: Work/School Release Form(ED)
== END 2017-10-27 18:56 | disposition home or self-care (01) ==
LOC: ED 10:31
DX: M25.552 Pain in left hip (principal); I12.0 Hypertensive chronic kidney disease with stage 5 chronic kidney disease or end stage renal disease; N18.6 End stage renal disease; Z99.2 Dependence on renal dialysis
CPT/HCPCS: 36415; 80048; 85007; 85025; 85652

== ENCOUNTER 2018-01-29 08:08 | Outpatient (CLI) | payer MEDICARE ==
--- NOTE | 2018-01-29 10:52 | Magnetic Resonance Report ---
MRI LUMBAR SPINE WITHOUT CONTRAST HISTORY: Spondylosis without myelopathy or radiculopathy. TECHNIQUE: axial T1, T2. sagittal T1,T2, STIR. COMPARISON: CT abdomen pelvis with contrast dated 01/05/18. FINDINGS: The conus terminates at T12. No signal abnormality or mass. The cauda equina is within normal limits. No central canal stenosis. Bone marrow replacement changes are identified. This appears to represent red bone marrow and is likely related to chronic renal parenchymal disease. There is no evidence for suspicious bony lesion or fracture. No malalignment. Minimal disc narrowing and desiccation is identified at L5-S1. The remaining discs are within normal limits. The facet joints are in appropriate relationship. No significant arthritic changes. L1-2: No significant abnormality. L2-3: No significant abnormality. L3-4: No significant abnormality. L4-5: No significant abnormality. L5-S1: No significant abnormality. IMPRESSION: Essentially unremarkable MRI of the lumbar spine. Minimal degenerative disc disease is identified at L5-S1 which appears appropriate for this persons age. No evidence for fracture, malalignment, bulging disc or nerve impingement. Marrow replacement changes which is probably related to chronic renal parenchymal disease.
== END 2018-01-29 08:09 | disposition home or self-care (01) ==
LOC: MRI 08:08
PROVIDERS: ATTEND Anesthesiology
DX: M51.37 Other intervertebral disc degeneration, lumbosacral region (principal); M25.559 Pain in unspecified hip; M46.1 Sacroiliitis, not elsewhere classified; G89.4 Chronic pain syndrome; I12.0 Hypertensive chronic kidney disease with stage 5 chronic kidney disease or end stage renal disease; N18.6 End stage renal disease; Z87.891 Personal history of nicotine dependence
CPT/HCPCS: 72148